=== PATIENT | male | born 1955 | race Caucasian/White ===

== ENCOUNTER → 2016-12-20 | Outpatient (CLI) | payer MEDICARE, MEDICAID ==
[~2016-12-20] MED LIST: ACYC-57 PO; ALLO100T30 PO; BISA10SU2 PR; CODE30TA3 PO; DEXA4TAB PO; DEXT15LI PO; DOCU100C8 PO; ENOX60SY4 SQ; FENT1PAT76 TP; FENT1PAT77 SUBD; HYDR-3138 PO; OMNIPAQUE 350 MG/ML, 75ML BOTTLE ONE; ONDA-40 PO; ONDA4TAB10 PO; OXYC-302 PO; OXYC5CAP4 PO; POLY454P4 PO
== END | disposition home or self-care (01) ==
LOC: CFH 09:32
PROVIDERS: ATTEND Specialist
DX: C37 Malignant neoplasm of thymus (principal); I82.290 Acute embolism and thrombosis of other thoracic veins; J70.0 Acute pulmonary manifestations due to radiation
CPT/HCPCS: 71260; 74160; Q9967

== ENCOUNTER → 2017-05-24 | Outpatient (CLI) | payer MEDICARE, MEDICAID ==
[~2017-05-24] MED LIST changes: +DOCU100C33 PO; -DOCU100C8 PO; -HYDR-3138 PO; +HYDR-3237 PO; -OMNIPAQUE 350 MG/ML, 75ML BOTTLE ONE; -ONDA-40 PO; +ONDA8TAB15 PO; +OXYC5CAP2 PO; -OXYC5CAP4 PO
== END | disposition home or self-care (01) ==
LOC: ROC 07:46
PROVIDERS: ATTEND Radiology Radiation Oncology
DX: C37 Malignant neoplasm of thymus (principal)
CPT/HCPCS: G0463

== ENCOUNTER → 2017-07-04 | Outpatient (CLI) | payer MEDICARE, MEDICAID | END | disposition home or self-care (01) | LOC: ROC 15:15 | PROVIDERS: ATTEND Radiology Radiation Oncology | DX: Z08 Encounter for follow-up examination after completed treatment for malignant neoplasm (principal); I87.1 Compression of vein; Z92.21 Personal history of antineoplastic chemotherapy; Z92.3 Personal history of irradiation; Z85.238 Personal history of other malignant neoplasm of thymus | CPT/HCPCS: G0463 ==

== ENCOUNTER → 2017-11-05 | Outpatient (CLI) | payer MEDICARE, MEDICAID ==
[~2017-11-05] MED LIST changes: +FENT1PAT75 TD; +SENN1TAB7 PO
== END ==
LOC: ROC 11:08
PROVIDERS: ATTEND Radiology Radiation Oncology
DX: Z08 Encounter for follow-up examination after completed treatment for malignant neoplasm (principal); I87.1 Compression of vein; Z85.238 Personal history of other malignant neoplasm of thymus; Z92.3 Personal history of irradiation; Z92.21 Personal history of antineoplastic chemotherapy
CPT/HCPCS: G0463

== ENCOUNTER 2017-11-08 17:27 | Emergency (ER) | payer MEDICARE, MEDICAID ==
[~2017-11-08] VITALS: Ht 172.7 cm; Wt 66.5 kg
[2017-11-08 17:30] VITALS: BP 155/86
[2017-11-08 18:16] LABS: BASOPHILS # (AUTO) 0.01 x10^3/uL (0-0.1); BASOPHILS % (AUTO) 0 % (0-1); EOSINOPHILS % (AUTO) 0 % (1-7); LYMPHOCYTES # (AUTO) 0.32 x10^3/uL (1-3.4); LYMPHOCYTES % (AUTO) 3 % (22-44); MD NO; MEAN CORPUSCULAR HEMOGLOBIN 29.4 pg (27.5-34.5); MEAN CORPUSCULAR HGB CONC 33.7 g/dL (33.2-36.2); MEAN CORPUSCULAR VOLUME 87.2 fL (81-97); MONOCYTES # (AUTO) 0.65 x10^3/uL (0.2-0.8); MONOCYTES % (AUTO) 6 % (2-9); NEUTROPHILS # (AUTO) 10.77 x10^3/uL (1.8-6.8); NEUTROPHILS % (AUTO) 92 % (42-75); PLATELET COUNT 294 x10^3/uL (130-400); RED BLOOD COUNT 4.52 x10^6/uL (4.38-5.82); RED CELL DISTRIBUTION WIDTH 15.3 % (9.4-14.8)
[2017-11-08 18:23] LABS: INTERNATIONAL NORMALIZED RATIO 0.97 (0.93-1.1)
[2017-11-08 18:25] LABS: MICROSCOPIC NOT IND
[2017-11-08] MEDS ORDERED: OXYcodone IR 5MG TABLET ONE (18:25)
[2017-11-08 18:26] LABS: ALANINE AMINOTRANSFERASE 24 U/L (12-78); ALBUMIN 3.7 g/dL (3.4-5.0); ANION GAP 8 mmol/L (5-15); CALCIUM 8.8 mg/dL (8.5-10.1); CHLORIDE 107 mmol/L (98-107); CREATININE 1.56 mg/dL (0.7-1.3)
[2017-11-08 18:28] LABS: ALKALINE PHOSPHATASE 110 U/L (45-117); BILIRUBIN,TOTAL 0.3 mg/dL (0.2-1.0); CULTURE INDICATED? NO; TOTAL PROTEIN 7.8 g/dL (6.4-8.2)
[2017-11-08] MEDS ORDERED: OXYcodone IR 5MG TABLET PO ONE (18:30)
[2017-11-08] MEDS ORDERED: SODIUM CHLORIDE FLUSH 10ML SYR IVF ONE (19:00)
== END 2017-11-08 19:27 | disposition home or self-care (01) ==
LOC: ED 19:05
DX: R07.89 Other chest pain (principal)
CPT/HCPCS: 36415; 80053; 81003; 83690; 85025; 85610; 85730; 99284

== ENCOUNTER → 2017-12-02 | Outpatient (CLI) | payer MEDICARE, MEDICAID | END | disposition home or self-care (01) | LOC: ROC 07:30 | PROVIDERS: ATTEND Radiology Radiation Oncology | DX: Z02.9 Encounter for administrative examinations, unspecified (principal) ==

== ENCOUNTER → 2017-12-04 | Outpatient (CLI) | payer MEDICARE, MEDICAID | LOC: ROC 14:06 | PROVIDERS: ATTEND Radiology Radiation Oncology | DX: Z08 Encounter for follow-up examination after completed treatment for malignant neoplasm (principal); C79.51 Secondary malignant neoplasm of bone; I12.9 Hypertensive chronic kidney disease with stage 1 through stage 4 chronic kidney disease, or unspecified chronic kidney disease; N18.3 Chronic kidney disease, stage 3 (moderate); Z72.0 Tobacco use | CPT/HCPCS: G0463 ==

== ENCOUNTER → 2018-01-09 | Outpatient (CLI) | payer MEDICARE, MEDICAID | END | disposition home or self-care (01) | LOC: CFH 11:58 | PROVIDERS: ATTEND Radiology Radiation Oncology | DX: C79.51 Secondary malignant neoplasm of bone (principal); C37 Malignant neoplasm of thymus; I10 Essential (primary) hypertension | CPT/HCPCS: 71260 ==

== ENCOUNTER → 2018-02-10 | Outpatient (CLI) | payer MEDICARE, MEDICAID | END | disposition home or self-care (01) | LOC: ROC 10:22 | PROVIDERS: ATTEND Radiology Radiation Oncology | DX: C37 Malignant neoplasm of thymus (principal); C79.51 Secondary malignant neoplasm of bone; I12.9 Hypertensive chronic kidney disease with stage 1 through stage 4 chronic kidney disease, or unspecified chronic kidney disease; N18.3 Chronic kidney disease, stage 3 (moderate) | CPT/HCPCS: G0463 ==

== ENCOUNTER 2018-09-29 08:14 | Outpatient (CLI) | payer MEDICARE, MEDICAID ==
[~2018-09-29 08:14] MED LIST changes: +SENN-177 PO; -SENN1TAB7 PO
[2018-10-08] MEDS ORDERED: AMOX1TAB62 PO (13:02)
[2018-10-08] MEDS ORDERED: DOXY100T PO (13:02)
== END 2018-09-29 23:59 | disposition home or self-care (01) ==
LOC: ROC 08:14
PROVIDERS: ATTEND Radiology Radiation Oncology
DX: Z02.9 Encounter for administrative examinations, unspecified (principal)

== ENCOUNTER → 2018-10-15 | Outpatient (CLI) | payer MEDICARE, MEDICAID ==
[~2018-10-15] MED LIST changes: +AMOX1TAB62 PO; +DOXY100T PO; +OMNIPAQUE 350 MG/ML, 100ML BOTTLE ONE
== END | disposition home or self-care (01) ==
LOC: CFH 07:23
PROVIDERS: ATTEND Radiology Radiation Oncology
DX: C79.51 Secondary malignant neoplasm of bone (principal); C37 Malignant neoplasm of thymus; M89.9 Disorder of bone, unspecified; R91.8 Other nonspecific abnormal finding of lung field
CPT/HCPCS: 74177; Q9967

== ENCOUNTER → 2018-10-20 | Outpatient (CLI) | payer MEDICARE, MEDICAID ==
[~2018-10-20] MED LIST changes: -OMNIPAQUE 350 MG/ML, 100ML BOTTLE ONE
== END | disposition home or self-care (01) ==
LOC: ROC 08:55
PROVIDERS: ATTEND Radiology Radiation Oncology
DX: Z08 Encounter for follow-up examination after completed treatment for malignant neoplasm (principal); C37 Malignant neoplasm of thymus
CPT/HCPCS: G0463

== ENCOUNTER 2018-10-26 09:01 | Inpatient (IN) | payer MEDICARE, MEDICAID ==
[~2018-10-26] VITALS: Ht 160 cm; Wt 62.7 kg
--- NOTE | 2018-10-26 09:21 | NUR ---
PT PRESENTED TO ED WITH LARGE EXTERNAL CHEST MASS THAT HAS PROTRUDED OUT SINCE JULY. PT WITH 5 DAYS CONSTIPATION AND INCREASING PAIN. PT WITH METS. ASSESSMENT COMPLETED. PA AT BEDSIDE AND ORDERS RECEIVED. PT PLACED ON BP AND CONT. PULSE OXIMETER.
--- NOTE | 2018-10-26 09:29 | NUR ---
PT WITH LARGE MASS ON STERNUM THAT IS COVERED WITH A 4X 4 GAUZE.
[2018-10-26] MEDS ORDERED: MORPHINE SULFATE 4 MG/ML, 1ML IVPush PRN (09:30)
[2018-10-26] MEDS ORDERED: SODIUM CHLORIDE FLUSH 10ML SYR IVF ONE (09:30)
[2018-10-26] MEDS ORDERED: ONDANSETRON 2MG/ML, 2ML IVPush ONE (09:30)
[2018-10-26] MEDS ORDERED: BUPR1PAT20 TD ×2 (09:41→09:42)
[2018-10-26] MEDS ORDERED: MUPI22OI2 TP (09:43)
[2018-10-26] MEDS ORDERED: SENN-178 PO (09:44)
[2018-10-26] MEDS ORDERED: ONDANSETRON 2MG/ML, 2ML ONE (09:45)
[2018-10-26 09:46] LABS: BASOPHILS % (AUTO) 0 % (0-1); EOSINOPHILS # (AUTO) 0.01 x10^3/uL (0-0.4); EOSINOPHILS % (AUTO) 0 % (1-7); LYMPHOCYTES # (AUTO) 0.37 x10^3/uL (1-3.4); LYMPHOCYTES % (AUTO) 3 % (22-44); MD NO; MEAN CORPUSCULAR HEMOGLOBIN 27.8 pg (27.5-34.5); MEAN CORPUSCULAR HGB CONC 33.5 g/dL (33.2-36.2); MEAN CORPUSCULAR VOLUME 83.1 fL (81-97); MEAN PLATELET VOLUME 7.3 fL (7.4-10.4); MONOCYTES # (AUTO) 0.68 x10^3/uL (0.2-0.8); MONOCYTES % (AUTO) 5 % (2-9); NEUTROPHILS # (AUTO) 12.27 x10^3/uL (1.8-6.8); NEUTROPHILS % (AUTO) 92 % (42-75); PLATELET COUNT 366 x10^3/uL (130-400); RED BLOOD COUNT 4.17 x10^6/uL (4.38-5.82); RED CELL DISTRIBUTION WIDTH 16.1 % (9.4-14.8)
[2018-10-26] MEDS ORDERED: MORPHINE SULFATE 4 MG/ML, 1ML ONE (09:46)
[2018-10-26 09:54] LABS: ALANINE AMINOTRANSFERASE 15 U/L (12-78); ALBUMIN 3.3 g/dL (3.4-5.0); ANION GAP 8 mmol/L (5-15); CALCIUM 8.8 mg/dL (8.5-10.1); CHLORIDE 105 mmol/L (98-107); CREATININE 1.23 mg/dL (0.7-1.3)
[2018-10-26 09:56] LABS: ALKALINE PHOSPHATASE 110 U/L (45-117); BILIRUBIN,TOTAL 0.4 mg/dL (0.2-1.0); TOTAL PROTEIN 7.6 g/dL (6.4-8.2)
--- NOTE | 2018-10-26 10:48 | NUR ---
PT WITH MORE PAIN OF GREATER THAN 10. MD AWARE.
[2018-10-26] MEDS ORDERED: HYDROmorphone 2 MG/ML, 1ML IVPush PRN ×2 (11:00→13:30)
[2018-10-26] MEDS ORDERED: HYDROmorphone 1 MG/ML, 1ML VIAL ONE (11:07)
--- NOTE | 2018-10-26 11:13 | NUR ---
PT GIVEN DILAUDID 0.5MG PRIOR TO ENEMA ADMINISTRATION.
--- NOTE | 2018-10-26 11:54 | NUR ---
PT UP TO [facility] FOR BOWEL MOVEMENT X 2.
--- NOTE | 2018-10-26 11:54 | NUR ---
CALLED REPORT TO SHARONDA CARVAJAL. PT WILL THEN BE TRANSFERRED.
[2018-10-26 12:45] VITALS: BP 135/75
[2018-10-26] MEDS ORDERED: GABAPENTIN 300 MG CAPSULE PO PRN (13:30)
[2018-10-26] MEDS ORDERED: ONDANSETRON 2MG/ML, 2ML IVPush PRN (13:30)
[2018-10-26] MEDS ORDERED: METHOCARBAMOL 500 MG TABLET PO PRN (13:30)
[2018-10-26] MEDS ORDERED: ONDANSETRON ODT 4 MG PO PRN (13:30)
[2018-10-26] MEDS ORDERED: LACTULOSE 10 GM/15 ML UDC ONE (13:32)
[2018-10-26] MEDS: SODIUM CHLORIDE 0.9% 1,000 ML IV SCH ×2 (13:35→22:11)
[2018-10-26] MEDS: HEPARIN 5,000 UNITS/ML, 1ML SQ SCH ×2 (13:36→22:11)
[2018-10-26] MEDS: BISACODYL 10 MG SUPP PR PRN (13:48)
[2018-10-26] MEDS: HYDROmorphone 2 MG/ML, 1ML IVPush PRN ×2 (16:36→21:06)
[2018-10-26] MEDS: MUPIROCIN OINT 2%, 22GM TP SCH ×2 (16:37→21:00)
[2018-10-26 18:47] VITALS: BP 116/77
[2018-10-26] MEDS: LACTULOSE 10 GM/15 ML UDC PO SCH (22:12)
[2018-10-27 00:57] VITALS: BP 133/79
[2018-10-27 01:15] LABS: MICROSCOPIC NOT IND
[2018-10-27 01:16] LABS: CULTURE INDICATED? NO
[2018-10-27] MEDS: HYDROmorphone 2 MG/ML, 1ML IVPush PRN ×4 (03:07→14:43)
[2018-10-27 05:03] LABS: BASOPHILS # (AUTO) 0.06 x10^3/uL (0-0.1); BASOPHILS % (AUTO) 1 % (0-1); EOSINOPHILS % (AUTO) 0 % (1-7); LYMPHOCYTES # (AUTO) 0.65 x10^3/uL (1-3.4); LYMPHOCYTES % (AUTO) 6 % (22-44); MD NO; MEAN CORPUSCULAR HEMOGLOBIN 28.1 pg (27.5-34.5); MEAN CORPUSCULAR HGB CONC 33.2 g/dL (33.2-36.2); MEAN CORPUSCULAR VOLUME 84.6 fL (81-97); MONOCYTES # (AUTO) 0.86 x10^3/uL (0.2-0.8); MONOCYTES % (AUTO) 8 % (2-9); NEUTROPHILS # (AUTO) 9.64 x10^3/uL (1.8-6.8); NEUTROPHILS % (AUTO) 86 % (42-75); PLATELET COUNT 314 x10^3/uL (130-400); RED BLOOD COUNT 3.92 x10^6/uL (4.38-5.82); RED CELL DISTRIBUTION WIDTH 16.3 % (9.4-14.8)
[2018-10-27 05:16] LABS: CHLORIDE 102 mmol/L (98-107)
[2018-10-27 05:24] LABS: ALANINE AMINOTRANSFERASE 12 U/L (12-78); ALBUMIN 2.8 g/dL (3.4-5.0); ALKALINE PHOSPHATASE 97 U/L (45-117); ANION GAP 8 mmol/L (5-15); BILIRUBIN,TOTAL 0.5 mg/dL (0.2-1.0); CALCIUM 8.5 mg/dL (8.5-10.1); CREATININE 1.23 mg/dL (0.7-1.3); TOTAL PROTEIN 6.9 g/dL (6.4-8.2)
[2018-10-27] MEDS: HEPARIN 5,000 UNITS/ML, 1ML SQ SCH ×3 (05:36→20:28)
[2018-10-27] MEDS ORDERED: BUPRENORPHINE 20 MCG TD SCH (09:00)
[2018-10-27] MEDS: MUPIROCIN OINT 2%, 22GM TP SCH ×3 (09:06→20:28)
[2018-10-27] MEDS: SENNA/DOCUSATE TABLET PO SCH (09:06)
[2018-10-27] MEDS: BISACODYL 10 MG SUPP PR PRN (09:06)
[2018-10-27] MEDS: LACTULOSE 10 GM/15 ML UDC PO SCH ×2 (09:06→20:28)
[2018-10-27] MEDS: SODIUM CHLORIDE 0.9% 1,000 ML IV SCH ×2 (09:07→17:43)
[2018-10-27 09:33] VITALS: BP 135/79
[2018-10-27 14:22] VITALS: BP 149/88
[2018-10-27 19:58] VITALS: BP 150/81
[2018-10-28 01:01] VITALS: BP 108/66
[2018-10-28] MEDS: SODIUM CHLORIDE 0.9% 1,000 ML IV SCH ×3 (02:50→23:22)
[2018-10-28] MEDS: HEPARIN 5,000 UNITS/ML, 1ML SQ SCH ×3 (04:47→19:28)
[2018-10-28 07:10] VITALS: BP 111/67
[2018-10-28] MEDS: LACTULOSE 10 GM/15 ML UDC PO SCH ×2 (09:07→19:28)
[2018-10-28] MEDS: SENNA/DOCUSATE TABLET PO SCH (09:07)
[2018-10-28] MEDS: MUPIROCIN OINT 2%, 22GM TP SCH ×3 (09:08→19:29)
[2018-10-28] MEDS: HYDROmorphone 2 MG/ML, 1ML IVPush PRN ×2 (09:08→19:29)
[2018-10-28] MEDS: OXYcodone IR 5MG TABLET PO PRN ×3 (13:03→23:22)
[2018-10-28 13:48] VITALS: BP 149/76
[2018-10-28 18:47] VITALS: BP 129/70
[2018-10-28 19:21] VITALS: BP 127/71
[2018-10-29 01:41] VITALS: BP 121/71
[2018-10-29] MEDS: HEPARIN 5,000 UNITS/ML, 1ML SQ SCH ×2 (06:03→13:38)
[2018-10-29] MEDS: OXYcodone IR 5MG TABLET PO PRN ×3 (06:08→16:13)
[2018-10-29 06:33] VITALS: BP 132/75
[2018-10-29] MEDS: SENNA/DOCUSATE TABLET PO SCH (08:01)
[2018-10-29] MEDS: SODIUM CHLORIDE 0.9% 1,000 ML IV SCH (08:01)
[2018-10-29] MEDS: LACTULOSE 10 GM/15 ML UDC PO SCH (08:01)
[2018-10-29] MEDS: MUPIROCIN OINT 2%, 22GM TP SCH (08:01)
[2018-10-29 13:03] VITALS: BP 126/80
[2018-10-29] MEDS ORDERED: BISA10SU54 PR (13:38)
[2018-10-29] MEDS ORDERED: SENN-177 PO (13:38)
== END 2018-10-29 16:50 | disposition home or self-care (01) | DRG 392 ==
LOC: ED 09:14 → 4NOR 11:09 → 3NW 18:25 → DCLOUNGE 10-29 16:39
PROVIDERS: ADMIT Internal Medicine; ATTEND Internal Medicine
DX: K59.00 Constipation, unspecified (principal); C37 Malignant neoplasm of thymus; R65.10 Systemic inflammatory response syndrome (SIRS) of non-infectious origin without acute organ dysfunction; C79.51 Secondary malignant neoplasm of bone; N18.3 Chronic kidney disease, stage 3 (moderate); D64.9 Anemia, unspecified; E74.39 Other disorders of intestinal carbohydrate absorption; F10.21 Alcohol dependence, in remission; G89.3 Neoplasm related pain (acute) (chronic); Z82.49 Family history of ischemic heart disease and other diseases of the circulatory system; Z83.3 Family history of diabetes mellitus; Z85.72 Personal history of non-Hodgkin lymphomas; Z92.21 Personal history of antineoplastic chemotherapy; Z92.3 Personal history of irradiation; R73.9 Hyperglycemia, unspecified
CPT/HCPCS: 36415; 74022; 80053; 81003; 85025; 96374; 96375; 99285; G0378; J1170; J1644; J2405; J7030

== ENCOUNTER → 2018-10-31 | Outpatient (CLI) | payer MEDICARE, MEDICAID ==
[~2018-10-31] MED LIST changes: +BISA10SU54 PR; +BUPR1PAT20 TD; +GADOBUTROL 7.5 MMOL/7.5 ML PFS ONE; +MUPI22OI2 TP; +SENN-178 PO
== END | disposition home or self-care (01) ==
LOC: CFH 11:04
PROVIDERS: ATTEND Radiology Radiation Oncology
DX: C79.51 Secondary malignant neoplasm of bone (principal); C37 Malignant neoplasm of thymus; M48.04 Spinal stenosis, thoracic region
CPT/HCPCS: 72157; A9585

== ENCOUNTER 2019-01-19 09:37 | Outpatient (CLI) | payer MEDICARE, MEDICAID | END 2019-01-19 23:59 | disposition home or self-care (01) | LOC: CFH 09:37 | PROVIDERS: ATTEND Radiology Radiation Oncology | DX: C79.51 Secondary malignant neoplasm of bone (principal); C37 Malignant neoplasm of thymus; C79.89 Secondary malignant neoplasm of other specified sites; M48.04 Spinal stenosis, thoracic region | CPT/HCPCS: 72157; A9585 ==

== ENCOUNTER 2019-01-22 07:32 | Outpatient (CLI) | payer MEDICARE, MEDICAID | END 2019-01-22 23:59 | disposition home or self-care (01) | LOC: ROC 07:32 | PROVIDERS: ATTEND Radiology Radiation Oncology | DX: C37 Malignant neoplasm of thymus (principal) | CPT/HCPCS: G0463 ==